=== PATIENT | male | born 1935 | race Caucasian/White ===

== ENCOUNTER 2020-04-20 20:24 | Emergency (ER) | payer MEDICARE ==
[~2020-04-20] VITALS: Ht 180.3 cm; Wt 92.7 kg
[~2020-04-20 20:24] MED LIST: ASPIRIN E.C. 8181 MG PO; B-121000 MCG PO; BACTRIM DS 8001 TAB PO; CEPHALEXIN500 M1 PO; CLARITIN 1010 MG/TAB PO; CORDARONE200 MG/TAB PO; COUMADIN 6MG6 MG/TAB PO; DOSTINEX0.5 MG/TAB; DULCOLAX STOOL100 MG PO; FLOMAX 0.40.4 MG/CAP PO; FLONASE NASAL S16 GM NS; LASIX 40MG TABL40 MG PO; LEVSIN0.125 M1 PO; MELATONIN3 M1 PO; NATURAL E400 IU PO; NORCO 325 MG-51 TAB PO; PERCOCET 325 MG1 TA2 PO; PRINIVIL40 MG PO; PROBIOTIC GOLD1 EACH PO; PROSCAR 5MG5 MG PO; PYRIDIUM 100MG100 MG PO; RAMIPRIL5 MG PO; RIFAMPIN300 MG PO; VITAMIN C500 MG PO; XANAX .25M0.25 MG/TA PO; XARELTO15 MG PO
[2020-04-20 22:39] LABS: COLLECTION METHOD IN
[2020-04-20] MEDS ORDERED: OMNICEF 300MG300 MG PO (22:41)
[2020-04-20 22:49] LABS: MUCOUS Present /lpf; PH 7 (5-8); SQUAMOUS EPITHELIAL None Seen /hpf; URINE APPEARANCE Hazy; URINE BACTERIA None Seen /hpf; URINE BILIRUBIN Negative (NEGATIVE); URINE BLOOD 2+ (NEGATIVE); URINE COLOR Yellow; URINE GLUCOSE Negative (NEGATIVE); URINE KETONE Negative (NEGATIVE); URINE LEUKOCYTE ESTERASE 3+ (NEGATIVE); URINE NITRATE Negative (NEGATIVE); URINE PROTEIN(semi-quant) 1+ (NEGATIVE); URINE RBC >50 /hpf; URINE UROBILINOGEN Negative (NEGATIVE)
[2020-04-20 23:10] VITALS: BP 136/83; PULSE 75; TEMP 98.6
== END 2020-04-20 23:16 | disposition home or self-care (01) ==
LOC: COL.ER 20:24
PROVIDERS: Emergency Medicine
DX: R33.9 Retention of urine, unspecified (principal); I10 Essential (primary) hypertension; Z90.49 Acquired absence of other specified parts of digestive tract; Z79.51 Long term (current) use of inhaled steroids